=== PATIENT | male | born 1975 | race American Indian/Alaskan Native ===

== ENCOUNTER 2020-02-04 13:28 | Emergency (ER) | payer OTHER ==
[~2020-02-04] VITALS: Ht 180.3 cm; Wt 102.1 kg
[2020-02-04] MEDS ORDERED: IBUPROFEN600 MG PO (13:43)
[2020-02-04] MEDS ORDERED: ZITHROMAX250 MG PO (16:00)
== END 2020-02-04 16:19 | disposition home or self-care (01) ==
LOC: ED 13:28
DX: J18.9 Pneumonia, unspecified organism (principal); Z87.891 Personal history of nicotine dependence
CPT/HCPCS: 71046; 80053; 85025; 87502; 94640; 94664; 99284-25; A9270

== ENCOUNTER 2020-04-22 06:35 | Day surgery (SDC) | payer OTHER ==
[~2020-04-22] VITALS: Ht 180.3 cm; Wt 104.3 kg
[~2020-04-22 06:35] MED LIST: IBUPROFEN600 MG PO; ZITHROMAX250 MG PO
[2020-04-22] MEDS ORDERED: LORATADINE10 MG PO (06:49)
--- NOTE | 2020-04-22 08:23 | NUR ---
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 PT APPEARS VERY CALM AND EXPRESSES GRATITUDE FOR CARE HE IS RECEIVING AT [facility]. PT SEEMS TO HAVE ALL HIS QUESTIONS ASKED AND ANSWERED. GAVE BLESSING
[2020-04-22] MEDS ORDERED: OXYCODON-ACETA1 EAC2 PO (08:26)
[2020-04-22] MEDS ORDERED: IBUPROFEN600 MG PO (08:26)
[2020-04-22] MEDS ORDERED: TYLENOL EXTRA500 MG PO (08:27)
--- NOTE | 2020-04-22 09:25 | NUR ---
04/22/20 0925 Fiona Stevens 0813 PT ARRIVED IN PACU WIDE AWAKE WITH NO C/O'S. 0825 PT VISITING WITH STAFF. NO C/O'S. DC INSTRUCTIONS GIVEN. ALL QUESTIONS ANSWERED. 0845 SIPPING ON WATER AT BEDSIDE. 0900 TO DS TO WAIT FOR RIDE HOME.
--- NOTE | 2020-04-22 13:30 | OR ---
[facility] [address], [place] [address] Signed DATE OF OPERATION: 04/22/2020 SURGEON: Mehrdad Blackburn MD PREOPERATIVE DIAGNOSIS: Left posterior thorax/lumbar large soft tissue mass. POSTOPERATIVE DIAGNOSIS: Left posterior thorax/lumbar large soft tissue mass, probable lipoma. PROCEDURE: Excision of left flank subfascial soft tissue mass 8 cm. ANESTHESIA: Local with monitored anesthesia care; yaz Ch CRNA, and local 10 mL of 0.25% Marcaine with epinephrine. INDICATION: This 45-year-old [place] man is a patient of IQRA Ortega and seen in early March for a soft tissue mass that has been present for greater than 10 years. It has enlarged over time. He has never had drainage from the area. He does have chronic back pain from other causes. The mass is relatively large and located in the left flank between the junction of the lumbar area and the chest. He is here today for excision of the mass. He understands the risks of bleeding, infection, recurrence, and need for additional treatment should malignancy be identified. He understands this, he wished to proceed. 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 It was approximately 8 cm in size. It was below the fascial layer, but had no intrathoracic component. Complete excision was accomplished without problem. DESCRIPTION OF PROCEDURE: The patient was brought to the operating room, placed in lateral position right side down. He was given intravenous sedation with propofol infusional technique. Preoperative antibiotic Ancef was given. Sequential compression device stockings used and heparin subcutaneously administered. The posterior thorax and lumbar area prepared with a chlorhexidine solution and draped sterilely. The lesion in question had been marked previously. A 0.25% Marcaine with epinephrine was injected in a field block configuration. A transverse incision was made directly over the mass. Dissection was Electronically Signed By: MEHRDAD BLACKBURN MD 04/22/20 1330 PATIENT NAME: ANTHONY MANLEY OPERATIVE REPORT DATE OF : 75 REPORT #: [id number] PHYSICIAN: MEHRDAD BLACKBURN MD PCP: NELIA MCGUIRE REPORT IS CONFIDENTIAL AND NOT TO BE RELEASED WITHOUT AUTHORIZATION [facility] [address], [place] [address] Signed carried through the skin and dermis with sharp dissection and additional dissection with cautery. A thin film fascial layer was incised revealing underlying lipomatous appearing mass. This was dissected free with blunt dissection primarily. Electrocautery used for hemostasis throughout. The lesion extended down to the posterior thoracic wall. It was excised fully. It was measured and found to be 8 cm in length. The wound was relatively avascular. Electrocautery was used to secure hemostasis fully. The wound was closed in layers with interrupted 2-0 Vicryl in the fascial layer and a running subcuticular 4-0 Vicryl for the skin. Steri-Strips were applied as was a silver sponge dressing. The patient was allowed to emerge from sedation, returned to the transport table and then taken to recovery room in good condition. BLOOD LOSS: Minimal. COMPLICATIONS: None. MD LIANET Burrows/RENEL /[id number] cc: Nelia Mcguire Copies: NELIA MCGUIRE ~ Electronically Signed By: MEHRDAD BLACKBURN MD 04/22/20 1330 PATIENT NAME: ANTHONY MANLEY OPERATIVE REPORT DATE OF : 75 REPORT #: [id number] PHYSICIAN: MEHRDAD BLACKBURN MD PCP: NELIA MCGUIRE REPORT IS CONFIDENTIAL AND NOT TO BE RELEASED WITHOUT AUTHORIZATION
--- NOTE | 2020-04-28 11:52 | PATH ---
[facility] [address] [place], [place] [address] Signed SPECIMEN(S): A LEFT LUMBAR SPECIMEN SOURCE: A. LEFT LUMBAR CLINICAL HISTORY: Soft tissue mass excision. FINAL PATHOLOGIC DIAGNOSIS: Soft tissue, left lumbar, mass, excision: - Mature fibroadipose tissue with scattered areas of fat necrosis. - See comment. COMMENT: The findings are consistent with a traumatized lipoma. Clinical correlation is required. As part of [facility] Quality Improvement Program, this case was reviewed by another member of our pathology staff. NAL:NRT:cml:C2NR MICROSCOPIC EXAMINATION: Histologic sections of all submitted blocks are examined by light microscopy. These findings, together with the gross examination, support the pathologic diagnosis. GROSS DESCRIPTION: The specimen, labeled "Jeffery Manley," and designated on the requisition "8 cm left lumbar soft tissue mass," is received in formalin and consists of a 57 gram portion of yellow-wlyie adipose tissue that is 7.7 x 6.2 x 3.0 cm. The specimen is partially surfaced by a transparent membranous tissue. The tissue is inked black and serially sectioned to reveal a pale yellow cut surface with focal areas of yellow chalky material. Yarn Rewinder sections are submitted in cassette (A1-A4). FB (under the direct supervision of a pathologist) The Gross Description was prepared using a voice recognition system. The report was reviewed for accuracy; however, sound-alike word errors, addition and/or deletions may occur. If there is any question about this report, please contact Client Services. PERFORMING LABORATORY: PATIENT NAME: JEFFERY MANLEY PATHOLOGY DATE OF : 75 REPORT #: [id number] PHYSICIAN: MEGHAN SCHMIDT PCP: SOBEIDA MCGUIRE REPORT IS CONFIDENTIAL AND NOT TO BE RELEASED WITHOUT AUTHORIZATION [facility] [address] [place] [address] Signed The technical component was performed by [facility] [place] [address] (Tester Regulator: Kenya Villeda MD; CLIA# [id number]). Professional interpretation was performed by [facility], [address] [address] (CLIA# [id number]). Diagnostician: Sharla Andrew MD Pathologist Electronically Signed 04/28/2020 Copies: ~ PATIENT NAME: JEFFERY MANLEY PATHOLOGY DATE OF : 75 REPORT #: [id number] PHYSICIAN: MEGHAN SCHMIDT PCP: SOBEIDA MCGUIRE REPORT IS CONFIDENTIAL AND NOT TO BE RELEASED WITHOUT AUTHORIZATION
== END 2020-04-22 09:00 | disposition home or self-care (01) ==
LOC: DS 06:35 → OPS 06:35 → DS 06:45 → OPS 06:45
PROVIDERS: Surgery
PROC: 0JB70ZZ Excision of Back Subcutaneous Tissue and Fascia, Open Approach (ICD-10-PCS; principal; 2020-04-22 06:45)
DX: E65 Localized adiposity (principal)
CPT/HCPCS: 00400; J0690; J1100; J1644; J1885; J2001; J2250; J2704; J7121